=== PATIENT | male | born 1985 | race Caucasian/White ===

== ENCOUNTER → 2017-08-02 | Outpatient (CLI) | payer OTHER | END | disposition home or self-care (01) | LOC: LAB 10:28 | PROVIDERS: ATTEND Preventive Medicine Preventive Medicine/Occupational Environmental Medicine | DX: Z02.1 Encounter for pre-employment examination (principal) | CPT/HCPCS: 36415; 86706; 86735; 86762; 86765; 86787 ==

== ENCOUNTER 2019-03-31 00:03 | Emergency (ER) | payer OTHER ==
[~2019-03-31] VITALS: Ht 200.7 cm; Wt 176.9 kg
[2019-03-31 00:13] VITALS: BP 138/84
[2019-03-31] MEDS ORDERED: cefTRIAXone SOD 1,000 MG VL IM ONE (04:45)
[2019-04-01 23:24] LABS: Hepatitis B Surface Antibody Positive
[2019-04-02 00:21] LABS: Hepatitis B Surface Antigen Negative (Negative)
== END 2019-03-31 04:43 | disposition home or self-care (01) ==
LOC: ER 00:04
DX: S60.511A Abrasion of right hand, initial encounter (principal); Z90.89 Acquired absence of other organs; W50.4XXA Accidental scratch by another person, initial encounter; Y93.89 Activity, other specified; Y92.89 Other specified places as the place of occurrence of the external cause; Y99.0 Civilian activity done for income or pay
CPT/HCPCS: 36415; 86703; 86706; 86803; 87340; 96372; 99283; J0696